=== PATIENT | female | born 1960 | race Caucasian/White ===

== ENCOUNTER 2016-12-20 09:00 | Inpatient (IN) | payer MEDICARE ==
[~2016-12-20] VITALS: Ht 170.2 cm; Wt 98.2 kg
--- NOTE | ~2016-12-20 | OP ---
PATIENT NAME: GRUPO ESCALANTE MEDICAL RECORD: [id number] :56 LOCATION:[id number] ADMISSION DATE:12/26/16 SURGEON: LENIN GUPTA DO OPERATION DATE: 12/26/16 PROCEDURE PERFORMED: Left total knee arthroplasty. INDICATION: The patient is a 56-year-old female who presented with left knee pain. Quite some years ago she had attempted nonoperative management as well as some physical therapy and she had the right knee done earlier this year and said she is tired of it affecting her activities of daily living and would like to proceed forth with a left total knee arthroplasty. PREPROCEDURE DIAGNOSIS: Left knee osteoarthritis. POSTPROCEDURE DIAGNOSIS: Left knee osteoarthritis. SURGEON: Lenin Gupta DO ELECTRICAL EXPERIMENTAL MECHANIC: This surgery could not be performed without the assistance of Lori Chacon APN. DESCRIPTION OF PROCEDURE: The patient was taken to the operative suite, placed in the supine position and after a adductor canal block was given and general anesthesia. A timeout was then performed. The patient was correctly identified, and the patient's site of the left knee was identified, she was given vancomycin and Ancef preoperatively. After the timeout was performed, the left lower extremity was prepped and draped in sterile fashion. Incision was then marked and the left leg was covered in Ioban over the incision site. Esmarch was used to exsanguinate the left lower extremity and the tourniquet was inflated to 300 millimeters of mercury. Incision was then made in the midline down to the knee capsule. Knife was then changed out and knee capsule arthrotomy was performed in the midline of the quad tendon along the patella and down along the medial side of the patellar tendon. The patella was then everted and sized and milled to appropriate size. At that time the knee was then flexed and the entry reamer for the femur was entered into the femur and into the femoral canal. After that was done an Asepto irrigation syringe was placed in the hole and medullary canal in the femur was irrigated and sucked out using suction. The distal femur was then cut with 5 degrees of valgus. The tibia was then addressed and was cut appropriately. A medial release was done on the medial tibia at that time as well as the medial and lateral menisci were removed. The cutting guide was placed on the tibia and the proximal tibia was resected. Tension block was then placed and the knee seemed to be balanced. The knee was then flexed up and the femur was sized to the appropriate size of 67.5 and the anterior, posterior and chamfer cuts were made at that time on the femur. The tibia was then addressed and sized to be 71. After the proximal tibia was resected and the femur was cut appropriately, the trials were put in place and a 10 poly was placed on the tibia. The knee was then ranged and seemed to be the correct sizes. The trial implants were removed. Tibia was then punched. At that time the whole knee was irrigated. We drilled the hole for the patella. The cement was being mixed. The tibia was then placed and impacted. Excess cement was removed and impacted again. The excess cement was removed one more time. The femoral implant of 67.5 was then placed, the tibia implant of [address] as well. The knee was brought into extension. The patella was then placed and patella squeezer was put into place and excess cement was removed. As the cement dried the knee was irrigated copiously and then bleeding was addressed at that time with electrocautery. The trial poly was OPERATIVE REPORT [id number] GRUPO ESCALANTE then removed once the cement was hardened and again seen to be a 10 poly standard and a 10 E-poly was placed at that time and the locking mechanism was put in place on the poly. The knee was irrigated and the tourniquet was let down at a total of 59 minutes. The knee was then brought into flexion and the capsule was closed using #1 Vicryl pops in a [id number] fashion. The knee was irrigated one more time and 2-0 Vicryl was then used to close the skin and the ZipLine device was used on the skin for that. The patient then had Adaptic, 4x4s, and ABD, Webril and Mika wrap placed over the knee and T.E.D. hose placed up to the knee. The patient was awoken in stable condition and taken to the Post Anesthesia Care Unit for recovery. LENIN GUPTA DO CC: [id number] DICTATION DATE: 12/26/16 1500 RETAIL ADVERTISING ACCOUNT EXECUTIVE: PHU 12/28/16 1233 ADM IN [place] [id number] [place] [address]
[2016-12-20 08:56] LABS: APPEARANCE CLEAR (CLEAR); BILIRUBIN NEGATIVE (NEGATIVE); COLOR DK YELLOW (YELLOW); GLUCOSE NEGATIVE (NEGATIVE); KETONE NEGATIVE (NEGATIVE); LEUKOCYTE ESTERASE 1+ (NEGATIVE); NITRITE NEGATIVE (NEGATIVE); PROTEIN NEGATIVE (NEGATIVE); UROBILINOGEN NORMAL (NORMAL)
[2016-12-20 08:57] LABS: BASOPHILS 0.4 % (0-2); EOSINOPHILS 2.5 % (0-7); HEMATOCRIT 41.1 % (36.0-48.0); HEMOGLOBIN 13.6 g/dL (12-16); IMMATURE GRANULOCYTES 0.2 % (0-5); LYMPHOCYTES 22.4 % (15-50); MCH 29.4 pg (26.0-34.0); MCHC 33.1 g/dL (31.0-37.0); MONOCYTES 6.5 % (2-11); PLATELET COUNT 155 10x3/uL (130-400); RBC 4.62 10x6/uL (4.00-5.40); RDW 12.6 % (11.5-14.5); WBC 5.7 10x3/uL (4.8-10.8)
[~2016-12-20 09:00] MED LIST: ALENDRONATE SOD70 MG PO; HYDROCODONE-APA1 TAB PO; LEXAPRO20 MG PO; PRAVACHOL40 MG PO; PRENATAL COMPLE1 TAB PO; SYNTHROID50 MCG PO; VITAMIN B-1000 MCG/M IM
[2016-12-20 09:01] LABS: ANION GAP 10.4 mmol/L (8-16); CALCIUM 9.5 mg/dL (8.5-10.1); CARBON DIOXIDE 32.7 mmol/L (21.0-32.0); CREATININE - SERUM 0.9 mg/dL (0.6-1.3); POTASSIUM - SERUM 4.1 mmol/L (3.5-5.1)
[2016-12-20 09:02] LABS: APTT 28.4 SECONDS (22.8-39.4); PROTIME 13.1 SECONDS (11.6-15.0)
[2016-12-20 09:03] LABS: BACTERIA FEW /hpf (NONE SEEN); EPITHELIAL CELLS 0-5 /hpf (0-5); RED CELLS - URINE RARE /hpf (0-5); WHITE CELLS - URINE 0-5 /hpf (0-5); YEAST RARE /hpf (NONE SEEN)
[2016-12-26] VITALS (7 sets, daily range): BP systolic 76–141; BP diastolic 45–93; Ht 170.2 cm; Wt 98.2 kg
--- NOTE | 2016-12-26 08:15 | NUR ---
THIS NURSE ENTERS ROOM AND OBSERVES THAT A PICC LINE HAS BEEN INSERTED IN THE LEFT UPPER ARM. X-RAY CONFIRMATION HAS NOT BEEN PERFORMED
--- NOTE | 2016-12-26 12:46 | NUR ---
L-LEG AND FOOT WASHED WITH HIBICLENS AND ALCOHOL PRIOR CHLORPREP
--- NOTE | 2016-12-26 15:40 | NUR ---
RECEIVED TO ROOM 2212 VIA BED FROM PACU. A/O X3. LEFT KNEE INCISION/DRESSING IS CLEAN AND DRY. FAMILY AT BEDSIDE. SKIN INTACT OTHERWISE. BP IS A LITTLE LOW AT THIS TIME. WILL MONITOR.
--- NOTE | 2016-12-26 17:04 | NUR ---
DR. MARQUES HERE TO SEE PATIENT. NO NEW ORDERS OF YET.
--- NOTE | 2016-12-26 19:30 | NUR ---
PATIENT RESTING IN BED WITH FAMILY AT BEDSIDE AND CPM MACHINE ON. PATIENT DENIES NEEDS AT THIS TIME. BED IN LOWEST POSITION AND CALL LIGHT WITHIN REACH. ENCOURAGED THE PATIENT TO CALL IF SHE HAS NEEDS.
--- NOTE | 2016-12-26 19:50 | NUR ---
CPM IN PLACE TO LEFT KNEE. NO C/O AT THIS TIME. DENIES NEEDS. FAMILY AT BEDSIDE.
[2016-12-27] VITALS: BP 126/78
--- NOTE | 2016-12-27 00:10 | NUR ---
PT VERBALIZED PAIN IS STILL AT AN 8 OUT OF 10, GAVE PT ICE PACK AND ADMIN 0.5 OF DILAUDED, PT HAS NOT BEEN TO BED STILL UNCOMFORTABLE
[2016-12-27 04:00] VITALS: BP 133/69
[2016-12-27 07:24] LABS: BASOPHILS 0.1 % (0-2); EOSINOPHILS 0 % (0-7); HEMATOCRIT 32.6 % (36.0-48.0); HEMOGLOBIN 10.9 g/dL (12-16); IMMATURE GRANULOCYTES 0.2 % (0-5); LYMPHOCYTES 9.8 % (15-50); MCH 29.2 pg (26.0-34.0); MCHC 33.4 g/dL (31.0-37.0); MCV 87.4 fL (80.0-100.0); MEAN PLATELET VOLUME 10.9 fL (7.4-10.4); MONOCYTES 9.3 % (2-11); NEUTROPHILS 80.6 % (40-80); PLATELET COUNT 145 10x3/uL (130-400); RBC 3.73 10x6/uL (4.00-5.40); RDW 12.3 % (11.5-14.5); WBC 10.2 10x3/uL (4.8-10.8)
[2016-12-27 07:53] LABS: ALBUMIN 2.7 g/dL (3.4-5.0); ALKALINE PHOSPHATASE 67 U/L (46-116); ALT (SGPT) 15 U/L (10-68); BILIRUBIN - TOTAL 0.38 mg/dL (0.2-1.3); CALC OSMOLALITY 277 mosm/kg (275-300); CARBON DIOXIDE 26.6 mmol/L (21.0-32.0); CHLORIDE - SERUM 106 mmol/L (98-107); CREATININE - SERUM 0.7 mg/dL (0.6-1.3); GLUCOSE 128 mg/dL (74-106); POTASSIUM - SERUM 3.9 mmol/L (3.5-5.1); PROTEIN - SERUM 5.6 g/dL (6.4-8.2); SODIUM 139 mmol/L (136-145); UREA NITROGEN 7 mg/dL (7-18); eGFR NON AFRICAN AMERICAN > 90 mL/min (90-120)
[2016-12-27 08:07] VITALS: BP 128/53
--- NOTE | 2016-12-27 08:22 | NUR ---
SCHEDULED MEDICATIONS ADMINISTERED AT THIS TIME. CPM REMOVED AND FAMILY AT BEDSIDE. ASSESSMENT PERFORMED PER FLOWSHEET. BED ALARM ON. PT DENIES NEEDS OR PAIN. CALL LIGHT IN REACH, WILL CONTINUE WITH PLAN OF CARE.
--- NOTE | 2016-12-27 11:30 | NUR ---
PRN OXY IR 5MG ADMINISTERED FOR PAIN 4/10 INCISIONALLY. LEFT UPPER ARM PICC LINE DRESSING CHANGED USING STERILE TECHNIQUE AND USING ALL CONTENTS OF KIT. PT TOLERATED WITHOUT COMPLAINTS. REMAINS UP IN CHAIR WITH AT BEDSIDE.
[2016-12-27 12:17] VITALS: BP 97/45
--- NOTE | 2016-12-27 12:40 | NUR ---
ASSISTED PT TO BEDSIDE COMMODE AT THIS TIME WITH STANDBY ASSISTANCE AND USE OF A WALKER.
--- NOTE | 2016-12-27 14:17 | NUR ---
Patient Name: GRUPO ESCALANTE Admission Status: Elective Accout number: [id number] Admission Date: 12-26-2016 : 1960 Admission Diagnosis:UNILATERAL PRIMARY OSTEOARTHRITIS, LEFT KNEE Attending: TALAT Current LOS: 1 Anticipated DC Date: 12-28-2016 Planned Disposition: Home Primary Insurance: [facility] Discharge Planning Comments: CM met with patient and spouse to assess discharge planning needs. Patient lives independently with her in [place]. Patient plans to discharge home with home health. She currently has a walker, shower chair and stated that a CPM machine was at her house. She denies having any stairs or steps in her home. CM will continue to follow and assist. PCP: [facility] ([place] Rolando (spouse) [phone] Photo Technologist: Amrita Bernstein * Is the patient Alert and Oriented? Yes 0 * How many steps to enter\exit or inside your home? 0 0 * [facility] * [facility] * Preadmission Environment Home with Family 0 * ADLs Independent 0 * Equipment Rolling Walker Shower Chair 0 * List name and contact numbers for known caregivers / representatives who currently or will assist patient after discharge: ROLANDO (SPOUSE)[phone] 0 * Community resources currently utilized None 0 * Additional services required to return to the preadmission environment? Yes 0 * Can the patient safely return to the preadmission environment? Yes 0 * Has this patient been hospitalized within the prior 30 days at any hospital? No 0 Grand Total: 0
--- NOTE | 2016-12-27 14:39 | NUR ---
CM sent referral to [facility] in [place] spoke with Marli. [phone]
[2016-12-27 16:14] VITALS: BP 104/66
--- NOTE | 2016-12-27 18:00 | NUR ---
PRN PAIN MEDICATION ADMINISTERED PER ORDER. CPM APPLIED TO LEFT KNEE AT THIS TIME. DENIES FURTHER NEEDS. CALL LIGHT IN REACH.
--- NOTE | 2016-12-27 19:43 | NUR ---
PT LYING IN BED W/ CPM MACHINE ON, STSATED THAT TODAYS TREATMENT HURT WORSE AND WOULD LIKE PAIN MEDS AN HOUR BEFORE CPM MACHINE APPLIED, NO OTHER NEEDS AT THIS TIME
[2016-12-27 20:00] VITALS: BP 114/42
--- NOTE | 2016-12-27 21:37 | NUR ---
PT STATED PAIN IS STILL AT AN 8, GAVE PT OXYCODONE AND TO LET US KNOW IF NOT ANY BETTER, PT GOT UP WITH PT TODAY AND STATED LEG HURTS WORSE. CONTINUE W/ PLAN OF CARE
[2016-12-28] VITALS: BP 92/44
[2016-12-28 04:00] VITALS: BP 134/70
--- NOTE | 2016-12-28 04:03 | NUR ---
PT VERBALIZED PAIN IS BETWEEN 8 AND 9 STILL, VERY UNCOMFORTABLE AND UNABLE TO STAY STILL, PT'S VS STABLE ADMIN DILAUDID, PT WANTS TO SEE DR GUPTA TO DISCUSS PAIN CONTROL
[2016-12-28 06:51] LABS: BASOPHILS 0.1 % (0-2); EOSINOPHILS 1.2 % (0-7); HEMATOCRIT 30.1 % (36.0-48.0); HEMOGLOBIN 10.1 g/dL (12-16); IMMATURE GRANULOCYTES 0.3 % (0-5); LYMPHOCYTES 17.6 % (15-50); MCH 29.7 pg (26.0-34.0); MCHC 33.6 g/dL (31.0-37.0); MCV 88.5 fL (80.0-100.0); MEAN PLATELET VOLUME 11.2 fL (7.4-10.4); MONOCYTES 11.5 % (2-11); NEUTROPHILS 69.3 % (40-80); RDW 12.7 % (11.5-14.5)
[2016-12-28 06:57] LABS: PLATELET COUNT 111 10x3/uL (130-400); WBC 6.9 10x3/uL (4.8-10.8)
[2016-12-28 07:08] LABS: ALBUMIN 2.7 g/dL (3.4-5.0); ALKALINE PHOSPHATASE 56 U/L (46-116); ALT (SGPT) 14 U/L (10-68); CALC OSMOLALITY 282 mosm/kg (275-300); CALCIUM 8.1 mg/dL (8.5-10.1); CARBON DIOXIDE 28.6 mmol/L (21.0-32.0); CHLORIDE - SERUM 108 mmol/L (98-107); CREATININE - SERUM 0.6 mg/dL (0.6-1.3); GLUCOSE 101 mg/dL (74-106); POTASSIUM - SERUM 3.4 mmol/L (3.5-5.1); PROTEIN - SERUM 5.5 g/dL (6.4-8.2); SODIUM 143 mmol/L (136-145); UREA NITROGEN 8 mg/dL (7-18); eGFR NON AFRICAN AMERICAN > 90 mL/min (90-120)
--- NOTE | 2016-12-28 07:57 | NUR ---
SCHEDULED MEDICATIONS ADMINISTERED AT THIS TIME. PAIN 01/18. FAMILY AT BEDSIDE. ASSESSMENT PERFORMED PER FLOWSHEET. SCD'S OFF PER PT AND BED ALARM ON. CALL LIGHT IN REACH, WILL CONTINUE WITH PLAN OF CARE.
[2016-12-28 08:18] VITALS: BP 139/68
--- NOTE | 2016-12-28 09:11 | NUR ---
PRN PERCOCET ADMINISTERED AT THIS TIME FOR PAIN 6/10 INCISIONALLY. DENIES FURTHER NEEDS. FAMILY AT BEDSIDE. UP IN CHAIR PER PHYSICAL THERAPY. WILL CONTINUE WITH PLAN OF CARE.
[2016-12-28 12:49] VITALS: BP 137/58
--- NOTE | 2016-12-28 13:20 | NUR ---
PERCOCET PO PER C/O PAIN. CALL LIGHT IN REACH.
--- NOTE | 2016-12-28 13:40 | NUR ---
MARLYN RICE APPLIED TO BLE AT THIS TIME PER ORDER. CALL LIGHT IN REACH AND PT'S FAMILY AT BEDSIDE. WILL CONTINUE WITH PLAN OF CARE.
[2016-12-28 16:10] VITALS: BP 142/69
[2016-12-28] MEDS ORDERED: ELIQUIS2.5 MG PO (16:13)
[2016-12-28] MEDS ORDERED: ATARAX 25 MG TA25 MG PO (16:14)
[2016-12-28] MEDS ORDERED: PERCOCET 10/3251 TA1 PO (16:14)
[2016-12-28] MEDS ORDERED: OXYCONTIN10 MG PO (16:15)
[2016-12-28] MEDS ORDERED: KEFLEX500 MG PO (16:16)
--- NOTE | 2016-12-28 16:16 | NUR ---
PRN ULTRAM ADMINISTERED FOR PAIN AT THIS TIME. PAIN RATED 5/10 AT THIS TIME. CALL LIGHT IN REACH, WILL CONTINUE WITH PLAN OF CARE.
--- NOTE | 2016-12-28 17:02 | NUR ---
CM REASSESSMENT NOTE: PATIENT IS DISCHARGING HOME TODAY/ALL EQUIPMENT SET UP PER MUTSAPHA QUIROGA. MUSTAPHA SPOKE WITH RYAN WITH [employer] IN [place] REGARDING PATIENT D/C TODAY HOME/SPOUSE DRIVING HER. D/C BEING FAXED TO [phone]
--- NOTE | 2016-12-28 17:17 | NUR ---
DISCHARGE PAPERWORK REVIEWED AND PICC LINE TO LEFT UPPER ARM D/C BY DEAN RAMIREZ WITH CATH TIP INTACT. DENIES QUESTIONS OR CONCERNS. CALL LIGHT IN REACH, WILL CONTINUE WITH PLAN OF CARE.
== END 2016-12-28 17:40 | disposition home health service (06) | DRG 470 ==
LOC: D.SDCHOLD 12-26 07:10 → D.MS 12-26 07:10 → D.SDCHOLD 12-26 08:00 → D.MS 12-26 12:48
PROVIDERS: Family Medicine; ADMIT Orthopaedic Surgery
PROC: 02HV33Z Insertion of Infusion Device into Superior Vena Cava, Percutaneous Approach (ICD-10-PCS; 2016-12-26)
PROC: B548ZZA Ultrasonography of Superior Vena Cava, Guidance (ICD-10-PCS; 2016-12-26)
PROC: 0SRD0JZ Replacement of Left Knee Joint with Synthetic Substitute, Open Approach (ICD-10-PCS; principal; 2016-12-26 09:45)
DX: M17.12 Unilateral primary osteoarthritis, left knee (principal); D62 Acute posthemorrhagic anemia; K21.9 Gastro-esophageal reflux disease without esophagitis; E03.9 Hypothyroidism, unspecified; F32.9 Major depressive disorder, single episode, unspecified; Z87.891 Personal history of nicotine dependence; I95.9 Hypotension, unspecified